=== PATIENT | male | born 1975 | race Two or more races ===

== ENCOUNTER 2023-05-21 08:49 | Emergency (ER) | payer OTHER ==
[~2023-05-21] VITALS: Ht 167.6 cm; Wt 115.7 kg
[2023-05-21] MEDS ORDERED: ZYRTEC10 M3 (08:54)
[2023-05-21] MEDS ORDERED: TOBRAMYCIN 20 DR/ML DROPS 5ML BOTTLE OP STA (11:34)
== END 2023-05-21 11:52 | disposition home or self-care (01) ==
LOC: ER 08:50
DX: H10.89 Other conjunctivitis (principal)